=== PATIENT | male | born 2000 | race Caucasian/White ===

== ENCOUNTER 2021-09-07 13:15 | Emergency (ER) | payer OTHER, SELFPAY ==
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
[2021-09-07 14:52] VITALS: BP 148/87; PULSE 80; RESP 16; TEMP 36.4; O2SAT 98; BMI 27.0
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
[2021-09-07] MEDS: Cyclobenzaprine HCl 5 MG TABLET PO (16:48)
[2021-09-07] MEDS: Ketorolac Tromethamine 30 MG/ML VIAL IM (16:49)
== END 2021-09-07 18:14 | disposition home or self-care (01) ==
PROVIDERS: Emergency Provider Emergency Medicine Emergency Medical Services; PCP Pediatrics
DX: S29.012A Strain of muscle and tendon of back wall of thorax, initial encounter (principal); S13.4XXA Sprain of ligaments of cervical spine, initial encounter; V43.52XA Car driver injured in collision with other type car in traffic accident, initial encounter; Y93.9 Activity, unspecified; Y92.410 Unspecified street and highway as the place of occurrence of the external cause; Y99.9 Unspecified external cause status
CPT/HCPCS: 70450; 72125; 72128; 72131; 96372; 99283; 99284; J1885

== ENCOUNTER 2023-04-07 03:37 | Emergency (ER) | payer OTHER, SELFPAY ==
[2023-04-07 03:43] VITALS: BP 129/89; PULSE 62; RESP 16; TEMP 36.7; O2SAT 98; BMI 26.6
[2023-04-07 04:03] LABS: Hematocrit 48.6 % (42.0-52.0); Hemoglobin 16.4 g/dl (14.0-18.0); Mean Corpuscular HGB Conc 33.7 g/dl (31.0-36.0); Mean Corpuscular Hemoglobin 27.7 pg (27.0-33.0); Mean Platelet Volume 9.7 fL (9.4-12.4); Platelet Count 218 X10*3/uL (160-400); Red Blood Count 5.93 X10*6/uL (4.60-5.80); Red Cell Distribution Width 11.7 % (11.0-16.0); White Blood Count 14.2 X10*3/uL (4.8-10.8)
[2023-04-07 04:19] LABS: Alanine Aminotransferase 42 U/L (0-40); Albumin Level 4.8 g/dL (3.5-5.0); Alkaline Phosphatase 70 U/L (39-117); Anion Gap 16 (12-20); Aspartate Amino Transferase 22 U/L (5-37); Bilirubin Total 0.8 mg/dL (0.0-1.0); Blood Urea Nitrogen 14 mg/dL (9-16); Carbon Dioxide 26 mmol/L (22-29); Chloride 104 mmol/L (96-108); Creatinine Clr Calc Pharmacy 111.9; Estimated Glomerular Filt Rate > 60; Glucose Random 109 mg/dL (60-115); Lipase 28 U/L (8-78); Potassium 4.3 mmol/L (3.3-5.1); Sodium 142 mmol/L (135-145); Total Protein 7.7 g/dL (6.5-8.0)
--- NOTE | 2023-04-07 06:36 | ED.ABDPAIN ---
HPI - Abdominal Pain General Chief Complaint: Abdominal Pain Stated Complaint: stomach pain Time Seen by Provider: 04/07/23 06:35 Source: patient, RN notes reviewed and old records reviewed Mode of arrival: ambulatory History of Present Illness HPI narrative: 22-year-old female no significant past medical history presenting to the ED complaining of abdominal cramping nausea, and vomiting s/p eating [place] last night around 22:00. Reports symptomatic improvement at present. Denies fever, chills, diarrhea/constipation, dysuria/hematuria MD elicited complaint: abdominal pain Related Data Previous Rx's Medication Instructions Recorded ketorolac 10 mg tablet 10 mg PO Q6H 5 days #20 tabs 09/07/21 methocarbamol 750 mg tablet 750 mg PO Q8H 5 days #15 tabs 09/07/21 ondansetron 4 mg disintegrating 4 mg PO Q8H PRN nausea and 04/07/23 tablet vomiting #10 tabs Allergies Allergy/AdvReac Type Severity Reaction Status Date / Time No Known Allergies Allergy Verified 09/07/21 14:52 Review of Systems Review of Systems Constitutional: No Fever, No Chills ENT/Mouth: No Ear Pain, No Nasal Congestion, No sore throat, No Rhinorrhea, No Swallowing Difficulty Cardiovascular: No Chest Pain, No SOB Respiratory: No Cough, No Sputum, No Wheezing Gastrointestinal: + Nausea, + Vomiting, No Diarrhea, No Constipation, +Abdominal pain Genitourinary: No Dysuria, No Urinary Frequency, No Hematuria, No Flank Pain Musculoskeletal: No joint pain, No Myalgias, No Joint Swelling Skin: No Skin Lesions, No rash No Numbness, No Paresthesias Yes all other systems are reviewed and are negative Constitutional: Reports as per [facility] Past Medical History Attestation statement: The following information was validated with the patient. Source: old records reviewed Medical History No known health problems Social History Social History Smoked in Last 30 Days: No Use of substances other than those prescribed or required for medical reasons: Yes Substance Use Type: Marijuana Advance Directives: No Advance Directives Information Provided: No Physical Exam ED Vital Signs: Vital Signs - 24 hr 04/07/23 03:43 04/07/23 06:38 12/05/23 08:26 Temperature 98.0 F 98.2 F Pulse Rate 62 75 87 Respiratory Rate 16 16 18 Blood Pressure 129/89 123/78 113/70 Pulse Oximetry 98 98 96 Oxygen Delivery Method Room Air Room Air Room Air 04/07/23 10:38 Temperature Pulse Rate 87 Respiratory Rate 16 Blood Pressure 126/75 Pulse Oximetry 96 Oxygen Delivery Method Room Air BMI result Body Mass Index 26.6 Const General: cooperative, healthy appearing and no acute distress Orientation/consciousness: patient oriented x3 Limitations: no limitations HENMT Head: Yes normal to inspection and Yes atraumatic Ears: hearing grossly normal bilaterally General nose exam: Normal external nose present Face and sinus: Yes normal facial exam Eyes General: appearance normal, both eyes and all related structures EOM: EOMs intact bilaterally Neck Neck: Yes normal visual inspection and Yes no meningeal signs Resp Effort & Inspection: normal respiratory effort and no respiratory distress Auscultation: clear to auscultation bilaterally Cardio Rate: regular rate Heart sounds: S1 normal heart sound present and S2 normal heart sound present GI Inspection: Yes normal to inspection Palpation (GI): Soft to palpation, nontender, no guarding and not rigid General: Yes no CVA tenderness Back/Spine/Pelvis Back: no CVA tenderness Skin Rashes: no rashes Wounds: no wounds Neuro General: patient oriented x3, tone normal and no meningeal signs Cranial nerves: Yes CN's II-XII intact bilaterally Gait exam (Neuro): Normal gait present Extrem General: Yes normal to inspection Course Course Course Narrative: -1002--mild leukocytosis of 14.2 > likely reactive from vomiting -labs otherwise reassuring. UA negative >> patient reports symptomatic improvement. Is tolerating p.o. in the ED Results discussed with patient including worrisome signs and symptoms and strict return precautions, and when to return to the emergency department. They verbalized understanding and feel safe for discharge at this time. Medical Decision Making Medical Decision Making [facility] Narrative: 22-year-old female no significant past medical history presenting to the ED complaining of abdominal cramping nausea, and vomiting s/p eating [employer] last night around 22:00. On exam vital signs stable, NAD, nontoxic appearing, abdomen soft/nontender, no CVAT. Concern for food poisoning/gastroenteritis vs metabolic abnormalities. Lower suspicion for appendicitis/diverticulitis or cholecystitis/lithiasis without tenderness on exam. Plan: Labs, UA, IVF, GI cocktail, PO challenge Please refer to course for remaining clinical decision making, interpretation of labs/imaging results, and discussions with consultants and/or family members. Differential Diagnosis Differential Diagnoses: The differential diagnosis associated with the presentation includes As above Admission/Observation Consideration of admission/observation: Escalation of care including admission/observation considered Lab Data MDM Lab Attestation statement: I reviewed the patient's lab results. 04/07/23 03:59 04/07/23 03:59 Labs: Lab Results 04/07/23 04/07/23 Range/Units 03:59 07:08 WBC 14.2 H (4.8-10.8) X10*3/uL RBC 5.93 H (4.60-5.80) X10*6/uL Hgb 16.4 (14.0-18.0) g/dl Hct 48.6 (42.0-52.0) % MCV 82.0 (80.0-98.0) fL MCH 27.7 (27.0-33.0) pg MCHC 33.7 (31.0-36.0) g/dl RDW 11.7 (11.0-16.0) % Plt Count 218 (160-400) X10*3/uL MPV 9.7 (9.4-12.4) fL Absolute Nucleated RBC 0.000 (0.0-0.012) X10*3/uL Nucleated RBC % (auto) 0.0 (0.0-0.2) /100WBC Sodium 142 (135-145) mmol/L Potassium 4.3 (3.3-5.1) mmol/L Chloride 104 (96-108) mmol/L Carbon Dioxide 26 (22-29) mmol/L Anion Gap 16 (12-20) BUN 14 (9-16) mg/dL Creatinine 1.01 (0.5-1.4) mg/dL Estim Creat Clear Calc 111.9 Estimated GFR > 60 Random Glucose 109 (60-115) mg/dL Calcium 10.0 (8.4-10.2) mg/dL Magnesium 1.9 (1.6-2.6) mg/dL Total Bilirubin 0.8 (0.0-1.0) mg/dL AST 22 (5-37) U/L ALT 42 H (0-40) U/L Alkaline Phosphatase 70 (39-117) U/L Total Protein 7.7 (6.5-8.0) g/dL Albumin 4.8 (3.5-5.0) g/dL Lipase 28 (8-78) U/L Urine Color Yellow Urine Appearance Clear Urine pH 7.0 (5.0-9.0) Ur Specific [place] 1.020 (1.005-1.025) Urine Protein Trace (Neg-Trace) mg/dL Urine Glucose (UA) Negative (Negative) mg/dL Urine Ketones >=80 (Negative) mg/dL Urine Blood Negative (Negative) Urine Nitrite Negative (Negative) Ur Leukocyte Esterase Negative (Negative) Urine RBC 3-5 H (0-2) /HPF Urine WBC 0-5 (0-5) /HPF Ur Squamous Epith Cells 0-2 (0-2) /HPF Urine Bacteria None Seen (None Seen) Hyaline Casts 0-2 (0-2) /LPF Radiology Impression Discussion of test interpretation with radiology: I have reviewed the radiologist's reading. External Record Review External record reviewed: Inpatient record, Office record, Outpatient record, Prior outpatient labs, Prior outpatient radiology, Primary care record and Outside ED record Tests considered The following testing was considered but not selected: As above Prescription Management I considered prescription management with: Pain Medication and Antibiotic Medications Administered Discontinued Medications Generic Name Dose Route Start Last Admin Trade Name Freq PRN Reason Stop Dose Admin Al Hydroxide/Mg Hydroxide 30 ml 04/07/23 06:50 04/07/23 07:04 Magnesium Hydrox/Alum Hydrox 30 Ml Oral.Susp PO 04/07/23 06:51 30 ml ONCE ONE Administration Famotidine 20 mg 04/07/23 06:50 04/07/23 07:04 Famotidine/Pf 20 Mg/2 Ml Vial IVPUSH 04/07/23 06:51 20 mg ONCE ONE Administration Sodium Chloride 1,000 mls @ 999 mls/hr 04/07/23 07:00 04/07/23 07:04 Ns IV 04/07/23 08:00 999 mls/hr .Q1H1M DESIREE Administration Ondansetron HCl 4 mg 04/07/23 06:50 04/07/23 07:04 Ondansetron Hcl 4 Mg/2 Ml Vial IVPUSH 04/07/23 06:51 4 mg ONCE ONE Administration Discharge Plan Discharge Clinical Impression: Food poisoning Patient Disposition: Home, Self-Care Instructions: Food Poisoning (ED) Additional Instructions: Your blood work is reassuring. Practice a bland diet Zofran as an antinausea medication, take as needed If you are unable to eat or drink persistent nausea/vomiting or fever return to the ED Prescriptions: New ondansetron 4 mg tablet,disintegrating 4 mg PO Q8H PRN (Reason: nausea and vomiting) Qty: 10 0RF No Action ketorolac 10 mg tablet 10 mg PO Q6H 5 Days Qty: 20 0RF methocarbamol 750 mg tablet 750 mg PO Q8H 5 Days Qty: 15 0RF Referrals: Physician,None [Primary Care Provider] - Interventions: ED Discharge Assessment Last Done: 04/07/23 10:38 Discharge Date/Time: 04/07/23 10:39
[2023-04-07 06:38] VITALS: BP 123/78; PULSE 75; RESP 16; TEMP 36.8; O2SAT 98
[2023-04-07] MEDS: 0.9 % Sodium Chloride 1,000 ML 999 ML IV (07:04)
[2023-04-07] MEDS: Famotidine/PF 20 MG/2 ML VIAL IVPUSH (07:04)
[2023-04-07] MEDS: ondansetron HCL 4 MG/2 ML VIAL IVPUSH (07:04)
[2023-04-07] MEDS: Magnesium Hydrox/Alum Hydrox 30 ML ORAL.SUSP PO (07:04)
[2023-04-07 07:11] LABS: Magnesium 1.9 mg/dL (1.6-2.6)
[2023-04-07 07:39] LABS: Appearance Urine Clear; Bacteria Urine None Seen (None Seen); Color Urine Yellow; Glucose Urine UA Negative (Negative); Hyaline Casts Urine 0-2 /LPF (0-2); Leukocyte Esterase Urine Negative (Negative); Nitrite Urine Negative (Negative); Squamous Epithelial Cell Urine 0-2 /HPF (0-2); Urine Blood Negative (Negative); Urine Ketones >=80 mg/dL (Negative); Urine Protein Trace mg/dL (Neg-Trace); WBC Urine 0-5 /HPF (0-5)
[2023-04-07 08:26] VITALS: BP 113/70; PULSE 87; RESP 18; O2SAT 96
--- NOTE | 2023-04-07 09:51 | PC.NURSE ---
patient able to tolerate crackers and gingerale. Rula ERIC aware. plan for dc home.
[2023-04-07 10:38] VITALS: BP 126/75; PULSE 87; RESP 16; O2SAT 96
== END 2023-04-07 10:39 | disposition home or self-care (01) ==
PROVIDERS: Physician Assistant; Emergency Provider Emergency Medicine Emergency Medical Services
DX: A05.9 Bacterial foodborne intoxication, unspecified (principal); R10.9 Unspecified abdominal pain; R11.2 Nausea with vomiting, unspecified; F12.90 Cannabis use, unspecified, uncomplicated
CPT/HCPCS: 36415; 80053; 81001; 83690; 83735; 85027; 96374; 96375; 99284; J2405

== ENCOUNTER 2024-03-24 22:13 | Emergency (ER) | payer OTHER, SELFPAY ==
--- NOTE | ~2024-03-24 | CT_ITS ---
EXAMINATION: CT ABDOMEN AND PELVIS WITHOUT CONTRAST CLINICAL INFORMATION: Abdominal pain. Rule out appendicitis versus kidney stone COMPARISON: CT abdomen and pelvis 09/27/2015. Report only. Images not available. TECHNIQUE: Multidetector volumetric imaging was performed from the superior aspect of the liver through the pubic symphysis. Sagittal and coronal reformatted images were obtained on the technologist's workstation. This CT examination was performed using dose optimization techniques as appropriate, variously including the following: *Automated exposure control *Adjustment of mA and/or kV according to patient size (this includes techniques or standardized protocols for targeted exams where dose is matched to indication/reason for exam; i.e. extremities or head) *Use of iterative reconstruction technique DLP: 579 mGy-cm FINDINGS: LUNG BASES: The visualized lung bases are unremarkable. LIVER, GALLBLADDER, AND BILIARY TREE: The liver is normal in size, shape, and attenuation. No focal hepatic lesion or biliary ductal dilatation is present. The gallbladder is unremarkable with no evidence of radiopaque gallstones, gallbladder wall thickening, or obvious pericholecystic inflammatory changes. PANCREAS: Unremarkable. SPLEEN: Unremarkable. ADRENAL GLANDS: Unremarkable. KIDNEYS AND URETERS: A 4 mm x 3 mm calculus is present in the interpolar segment of the right renal pelvis. No hydronephrosis or ureterectasis. No ureteral calculi identified. No perinephric inflammatory changes. BLADDER: Unremarkable. GASTROINTESTINAL TRACT: The appendix demonstrates a maximum outer wall diameter of 6 mm, at the upper limits of normal size. Gas is noted in scattered locations within the appendiceal lumen. Focal hyperdensity likely representing a 3 mm diameter appendicolith is present in the mid segment of the appendix. No periappendiceal inflammatory changes or fluid collections noted. The appendiceal wall is normal in thickness. No elevated enhancement or evidence of hyperemia of the appendix visualized. Diffuse submucosal fat deposition is noted within the colon. No inflammatory changes of the sigmoid or small bowel mesentery noted. Normal appearance of the terminal ileum. No free intraperitoneal fluid or gas collections identified. Normal appearance of the stomach and duodenum. ABDOMINAL WALL: No significant hernia is appreciated. LYMPH NODES: Normal. VASCULAR: Unremarkable. PELVIC VISCERA: Normal appearance of the prostate and seminal vesicles OSSEOUS STRUCTURES: Normal appearance of the sacroiliac joints. No suspicious skeletal lesions. CT/CT abdomen pelvis wo IV con IMPRESSION: *No acute abnormalities identified. *Single nonobstructing 4 mm x 3 mm calculus within the right renal pelvis. No hydronephrosis or ureterectasis. No perinephric laboratory changes. *No inflammatory changes of the appendix. The appendix measures 6 mm in maximum diameter, at the upper limits of normal size. A 3 mm diameter appendicolith is present in the mid body of the appendix. Normal-appearing gas is present in scattered portions of the appendiceal lumen. Gas within the appendiceal lumen weighs against acute inflammatory changes. *Diffuse submucosal fat deposition within the colon. This finding is suspicious for a chronic sequela of prior colitis and possible inflammatory bowel disease. Normal appearance of the terminal ileum. Electronically signed by: Mauro Nielsen MD 03/25/2024 03:13 AM SANJAY MCNAMARA
[2024-03-24 22:23] VITALS: BP 143/105; PULSE 81; RESP 20; TEMP 36.2; O2SAT 99; BMI 26.6
[2024-03-24] MEDS: Ondansetron ODT 4 MG TAB.RAPDIS TRANSLINGU (22:27)
[2024-03-24 22:48] LABS: MANUAL DIFF FLAG NO
[2024-03-24 22:50] LABS: Basophils Percent Auto 0.6 % (0-2); Eosinophils Absolute Auto 0.1 X10*3/uL (0.0-0.4); Eosinophils Percent Auto 1.7 % (0-4); Hematocrit 47.7 % (42.0-52.0); Hemoglobin 16.7 g/dl (14.0-18.0); Imm Gran Abs Auto 0.02 X10*3/uL (0.00-0.03); Imm Gran Pct Auto 0.3 % (0.0-0.4); Lymphocytes Percent Auto 46.6 % (20-40); Mean Corpuscular Hemoglobin 27.6 pg (27.0-33.0); Mean Platelet Volume 9.9 fL (9.4-12.4); Monocytes Absolute Auto 0.5 X10*3/uL (0.1-1.2); Monocytes Percent Auto 7.8 % (2-11); Neutrophils Absolute Auto 2.8 x10*3/uL (2.0-8.3); Platelet Count 199 X10*3/uL (160-400); Red Blood Count 6.04 X10*6/uL (4.60-5.80); Red Cell Distribution Width 11.9 % (11.0-16.0); White Blood Count 6.5 X10*3/uL (4.8-10.8)
[2024-03-24 23:04] LABS: Alanine Aminotransferase 30 U/L (0-40); Albumin Level 4.7 g/dL (3.5-5.0); Alkaline Phosphatase 70 U/L (39-117); Anion Gap 16 (12-20); Aspartate Amino Transferase 20 U/L (5-37); Bilirubin Total 0.9 mg/dL (0.0-1.0); Blood Urea Nitrogen 10 mg/dL (9-16); Calcium 9.8 mg/dL (8.4-10.2); Carbon Dioxide 20 mmol/L (22-29); Chloride 106 mmol/L (96-108); Estimated Glomerular Filt Rate > 60; Glucose Random 94 mg/dL (60-115); Potassium 3.4 mmol/L (3.3-5.1); Sodium 139 mmol/L (135-145); Total Protein 7.5 g/dL (6.5-8.0)
[2024-03-24 23:26] LABS: Influenza A PCR NEGATIVE (Negative); Influenza B PCR NEGATIVE (Negative); Resp Syncy Virus RNA Qual PCR NEGATIVE (Negative); SARS COV2 PCR INHOUSE NEGATIVE (Negative)
[2024-03-25 01:07] VITALS: BP 142/84; PULSE 66; RESP 16; TEMP 36.8; O2SAT 98
--- NOTE | 2024-03-25 01:11 | MHC.EDTECH ---
This pct just assumed care of Patient ,vitals taken ,Patient resting quietly in bed .
--- NOTE | 2024-03-25 02:12 | ED.ABDPAIN ---
HPI - Abdominal Pain General Chief Complaint: Nausea/Vomiting/Diarrhea Stated Complaint: stomach pains/lightheaded Time Seen by Provider: 03/25/24 01:30 Source: patient Mode of arrival: ambulatory Limitations: no limitations History of Present Illness ED Provider: DR. Cabrales HPI narrative: 23-year-old male came in for evaluation abdominal pain, bilateral flank pain,nausea, vomiting started since 07:00 patient wake up in the morning with this pain, pain has been constant, associated with nausea and vomiting, normal bowel movement, passing flatus, patient states that he had multiple times vomiting with streaks of blood. No dysuria, no frequency urination, no bloody urine, never had intra-abdominal history of surgery. Related Data Previous Rx's ?Medication ?Instructions ?Recorded ketorolac 10 mg tablet 10 mg PO Q6H 5 days #20 tabs 09/07/21 methocarbamol 750 mg tablet 750 mg PO Q8H 5 days #15 tabs 09/07/21 ondansetron 4 mg disintegrating 4 mg PO Q8H PRN nausea and 04/07/23 tablet vomiting #10 tabs Allergies Allergy/AdvReac Type Severity Reaction Status Date / Time No Known Allergies Allergy Verified 03/24/24 22:24 Review of Systems Review of Systems All other systems are reviewed and are negative Constitutional: Reports as per HPI and Reports no additional constitutional complaints Eyes: Reports as per HPI and Reports no additional eye complaints Reports system reviewed and no additional complaints, except as documented Cardiovascular: Reports as per HPI and Reports no additional cardiovascular complaints Respiratory: Reports as per HPI and Reports no additional respiratory complaints Gastrointestinal: Reports as per HPI and Reports no additional gastrointestinal complaints Genitourinary: Reports no additional female genitourinary complaints Musculoskeletal: Reports no additional musculoskeletal complaints Skin/Breast: Reports system reviewed and no additional complaints, except as docu Psychiatric: Reports no additional psychiatric complaints Endocrine: Reports no additional endocrine complaints Hematologic/Lymphatic: Reports no additional hematologic/lymphatic complaints Allergic/Immunologic: Reports no additional allergic/immunologic complaints Reports system reviewed and no additional complaints, except as documented and Reports Abnormal speech present [facility] Past Medical History Medical History No known health problems Social History Social History Smoked in Last 30 Days: No Use of substances other than those prescribed or required for medical reasons: Yes Substance Use Type: Marijuana Substance Use Frequency: Occasionally Advance Directives: No Advance Directives Information Provided: No Physical Exam ED Vital Signs: Vital Signs - 24 hr 03/24/24 22:23 03/25/24 01:07 03/25/24 03:02 Temperature 97.2 F 98.3 F 98.4 F Pulse Rate 81 66 79 Respiratory Rate 20 16 16 Blood Pressure 143/105 H 142/84 H 127/70 Pulse Oximetry 99 98 97 Oxygen Delivery Method Room Air Room Air Room Air 03/25/24 04:21 Temperature 98.2 F Pulse Rate 73 Respiratory Rate 16 Blood Pressure 134/79 Pulse Oximetry 95 Oxygen Delivery Method Room Air BMI result Body Mass Index 26.6 Vital signs have been reviewed and appear to be correct. Blood pressure elevated. Heart rate normal. Respiratory rate normal. Temperature normal. Oxygen saturation normal. Appearance: Alert. Oriented X3. No acute distress. Head: Normal external exam. Normocephalic. Atraumatic. No Sparrow signs noted. No raccoon eyes noted Eyes: PERRLA. EOMI. Conjunctiva and sclera normal. Eyelids normal. ENT: TM's Normal. Pharynx normal. Uvula midline. Moist mucous membranes. No trismus noted. No drooling noted. No muffled voice noted. Neck: Normal inspection. Neck supple. FROM. No adenopathy. Thyroid Normal. No meningeal signs. No neck mass noted. CVS: Normal heart rate and rhythm. Heart sound normal. No murmurs noted. Pulses normal throughout. Respiratory: No respiratory distress. Painless inspiration. Breath sounds normal. No wheezes/rales/rhonchi noted. Chest nontender. No accessory muscle usage noted or decreased air movement noted. Abdomen: Soft and nontender. Bowel sounds normal in all 4 quadrants. No distention noted. No organomegaly noted. No visible injury noted. exam: Intact cremasteric reflex bilaterally, no testicular redness or tenderness. Back: No CVA tenderness. Full range of motion noted. Skin: Skin warm and dry. Normal skin color. Normal skin turgor. No rashes/lesions/lacerations noted. Extremities: No lower extremity edema. Extremities exhibit normal range of motion. Extremities nontender. Neuro: Oriented X 3. Cranial nerve exam: II-XII are grossly intact No motor deficit. No sensory deficit. Reflexes normal. Course Reevaluation(s) Reevaluation #1: abdominal pain now is resolved, able to tolerate p.o. intake, no nausea or vomiting, UA is showing blood and RBCs, CT of the abdomen and pelvis showing no obstructing kidney stone likely passed a before this CT was performed, will reassured the patient discharge encouraged to drink plenty of fluids. Time: 04:51 Medical Decision Making Differential Diagnosis Differential Diagnoses: The differential diagnosis associated with the presentation includes ( obstructing kidney stone, pyelonephritis, UTI, electrolyte derangement, severe anemia, colitis, diverticulitis, acute appendicitis,.) Admission/Observation Consideration of admission/observation: Escalation of care including admission/observation considered Lab Data MDM Lab Attestation statement: I reviewed the patient's lab results. 03/24/24 22:43 03/24/24 22:43 Labs: Lab Results 03/24/24 03/25/24 Range/Units 22:43 03:11 WBC 6.5 (4.8-10.8) X10*3/uL RBC 6.04 H (4.60-5.80) X10*6/uL Hgb 16.7 (14.0-18.0) g/dl Hct 47.7 (42.0-52.0) % MCV 79.0 L (80.0-98.0) fL MCH 27.6 (27.0-33.0) pg MCHC 35.0 (31.0-36.0) g/dl RDW 11.9 (11.0-16.0) % Plt Count 199 (160-400) X10*3/uL MPV 9.9 (9.4-12.4) fL Immature Gran % (Auto) 0.3 (0.0-0.4) % Neut % (Auto) 43.0 L (45-73) % Lymph % (Auto) 46.6 H (20-40) % [place] % (Auto) 7.8 (2-11) % Eos % (Auto) 1.7 (0-4) % Baso % (Auto) 0.6 (0-2) % Lymph # (Auto) 3.0 (1.2-4.9) X10*3/uL [place] # (Auto) 0.5 (0.1-1.2) X10*3/uL Eos # (Auto) 0.1 (0.0-0.4) X10*3/uL Baso # (Auto) 0.0 (0.0-0.2) X10*3/uL Abs Immat Gran (auto) 0.02 (0.00-0.03) X10*3/uL Absolute Neuts (auto) 2.8 (2.0-8.3) x10*3/uL Absolute Nucleated RBC 0.000 (0.0-0.012) X10*3/uL Nucleated RBC % (auto) 0.0 (0.0-0.2) /100WBC Sodium 139 (135-145) mmol/L Potassium 3.4 (3.3-5.1) mmol/L Chloride 106 (96-108) mmol/L Carbon Dioxide 20 L (22-29) mmol/L Anion Gap 16 (12-20) BUN 10 (9-16) mg/dL Creatinine 0.95 (0.5-1.4) mg/dL Estim Creat Clear Calc 114.0 Estimated GFR > 60 Random Glucose 94 (60-115) mg/dL Calcium 9.8 (8.4-10.2) mg/dL Total Bilirubin 0.9 (0.0-1.0) mg/dL AST 20 (5-37) U/L ALT 30 (0-40) U/L Alkaline Phosphatase 70 (39-117) U/L Total Protein 7.5 (6.5-8.0) g/dL Albumin 4.7 (3.5-5.0) g/dL Urine Color Yellow Urine Appearance Cloudy Urine pH 6.5 (5.0-9.0) Ur Specific [place] 1.020 (1.005-1.025) Urine Protein 30 (1+) H (Neg-Trace) mg/dL Urine Glucose (UA) Negative (Negative) mg/dL Urine Ketones 40 (Negative) mg/dL Urine Blood Large (3+) H (Negative) Urine Nitrite Negative (Negative) Ur Leukocyte Esterase Small (1+) H (Negative) Urine RBC >20 H (0-2) /HPF Urine WBC 0-5 (0-5) /HPF Ur Squamous Epith Cells 0-2 (0-2) /HPF Urine Bacteria None Seen (None Seen) Hyaline Casts 0-2 (0-2) /LPF Influenza Type A (PCR) NEGATIVE (Negative) Influenza Type B (PCR) NEGATIVE (Negative) RSV RNA Qual (PCR) NEGATIVE (Negative) SARS-CoV-2 RNA (RT-PCR) NEGATIVE (Negative) Independent Interpretation I performed an independent interpretation of an: CT Scan ( abdomen pelvis:*No acute abnormalities identified. *Single nonobstructing 4 mm x 3 mm calculus within the right renal pelvis. No hydronephrosis or ureterectasis. No perinephric laboratory changes. *No inflammatory changes of the appendix. The appendix measures 6 mm in maximum diameter, at the up) Radiology Impression Discussion of test interpretation with radiology: I have reviewed the radiologist's reading. Medications Administered Discontinued Medications Generic Name Dose Route Start Last Admin Trade Name Freq PRN Reason Stop Dose Admin Al Hydroxide/Mg Hydroxide 30 ml 03/25/24 01:48 03/25/24 02:29 Magnesium Hydrox/Alum Hydrox 30 Ml Oral.Susp PO 03/25/24 01:49 30 ml ONCE ONE Administration Famotidine 20 mg 03/25/24 01:48 03/25/24 02:29 Famotidine/Pf 20 Mg/2 Ml Vial IVPUSH 03/25/24 01:49 20 mg ONCE ONE Administration Sodium Chloride 1,000 mls @ 999 mls/hr 03/25/24 01:48 03/25/24 02:22 Ns IV 03/25/24 02:48 999 mls/hr .Q1H1M ONE Administration Ondansetron HCl 4 mg 03/24/24 22:25 03/24/24 22:27 Ondansetron Odt 4 Mg Tab.Rapdis TRANSLINGU 03/24/24 22:26 4 mg ONCE ONE Administration Ondansetron HCl 4 mg 03/25/24 01:48 03/25/24 02:29 Ondansetron Hcl 4 Mg/2 Ml Vial IVPUSH 03/25/24 01:49 4 mg ONCE ONE Administration Discharge Plan Discharge Clinical Impression: Abdominal pain Patient Disposition: Home, Self-Care Instructions: Abdominal Pain (ED) Additional Instructions: return to the emergency department if abdominal pain or nausea or vomiting. Otherwise follow-up with your primary doctor within 1-2 weeks Prescriptions: No Action ketorolac 10 mg tablet 10 mg PO Q6H 5 Days Qty: 20 0RF methocarbamol 750 mg tablet 750 mg PO Q8H 5 Days Qty: 15 0RF ondansetron 4 mg tablet,disintegrating 4 mg PO Q8H PRN (Reason: nausea and vomiting) Qty: 10 0RF Print Language: Nepali
[2024-03-25] MEDS: 0.9 % Sodium Chloride 1,000 ML 999 ML IV (02:22)
[2024-03-25] MEDS: Magnesium Hydrox/Alum Hydrox 30 ML ORAL.SUSP PO (02:29)
[2024-03-25] MEDS: ondansetron HCL 4 MG/2 ML VIAL IVPUSH (02:29)
[2024-03-25] MEDS: Famotidine/PF 20 MG/2 ML VIAL IVPUSH (02:29)
[2024-03-25 03:02] VITALS: BP 127/70; PULSE 79; RESP 16; TEMP 36.9; O2SAT 97
--- NOTE | 2024-03-25 03:11 | MHC.EDTECH ---
Patient urine sample collected and sent to lab .
[2024-03-25 04:11] LABS: Appearance Urine Cloudy; Color Urine Yellow; Glucose Urine UA Negative (Negative); Leukocyte Esterase Urine Small (1+) (Negative); Nitrite Urine Negative (Negative); PH 6.5 (5.0-9.0); UMIC TRIGGER UACC YES; Urine Blood Large (3+) (Negative); Urine Ketones 40 mg/dL (Negative); Urine Protein 30 (1+) mg/dL (Neg-Trace)
[2024-03-25 04:21] VITALS: BP 134/79; PULSE 73; RESP 16; TEMP 36.8; O2SAT 95
--- NOTE | 2024-03-25 04:22 | MHC.EDTECH ---
0400 rounding and vitals done ,Patient was given p/o challenge ,Patient tolerated saltines crackers and alexsandra marla well ,Patient said Pain scale at a 2 Provider aware .
[2024-03-25 04:28] LABS: Bacteria Urine None Seen (None Seen); Hyaline Casts Urine 0-2 /LPF (0-2); RBC Urine >20 /HPF (0-2); Squamous Epithelial Cell Urine 0-2 /HPF (0-2); UACC Culture Trigger YES; WBC Urine 0-5 /HPF (0-5)
[2024-03-25 05:25] VITALS: BP 128/74; PULSE 79; RESP 16; TEMP 36.7; O2SAT 98
== END 2024-03-25 05:26 | disposition home or self-care (01) ==
PROVIDERS: Emergency Provider Emergency Medicine
DX: R10.9 Unspecified abdominal pain (principal); Z03.818 Encounter for observation for suspected exposure to other biological agents ruled out; R11.2 Nausea with vomiting, unspecified
CPT/HCPCS: 0241U; 74176; 80053; 81001; 85025; 87086; 99284; J2405